=== PATIENT | male | born 1970 | race Caucasian/White ===

== ENCOUNTER 2022-08-09 16:45 | Outpatient (RCR) | payer BC, SELFPAY | END 2022-08-10 09:39 | disposition home or self-care (01) | PROVIDERS: PCP Family Medicine; Visit Provider Orthopaedic Surgery | DX: R20.0 Anesthesia of skin (principal); Z51.89 Encounter for other specified aftercare | CPT/HCPCS: 97033; 97035; 97110; 97140; 97166; X5282 ==